=== PATIENT | female | born 1955 | race Caucasian/White ===

== ENCOUNTER 2017-11-03 15:26 | Observation (INO) | payer BC ==
[~2017-11-03] VITALS: Ht 177.8 cm; Wt 81.4 kg
[~2017-11-03 15:26] MED LIST: DDAVP0.1 MG PO; DESMOPRESSIN A0.2 MG; HYDROCORTISONE10 MG PO; LEVOTHYROXINE75 MCG PO; METOPROLOL TART50 MG PO; PANTOPRAZOLE SO40 MG PO; SYNTHROID75 MCG PO
[2017-11-03] MEDS ORDERED: SODIUM CHLORIDE 0.9% 1000ML 1,000 ML IV STA ×2 (15:47)
[2017-11-03] MEDS ORDERED: ONDANSETRON HCL INJ 2 MG/ML VIAL IV PRN ×2 (16:00→18:30)
[2017-11-03] MEDS ORDERED: FAMOTIDINE 20 MG/2 ML VIAL IV ONE (16:00)
[2017-11-03] MEDS ORDERED: PROMETHAZINE 12.5MG/ NACL 0.9% 12.5 MG/50 ML BAG IV PRN (16:00)
[2017-11-03 16:49] LABS: BASOPHILS % 0.2 % (0.0-1.0); HEMATOCRIT 43.5 % (34.2-44.1); HEMOGLOBIN 15.6 g/dL (12.0-16.0); LYMPHOCYTES # (AUTO) 3.9 (1.0-3.2); LYMPHOCYTES % 28.1 % (18.0-39.1); MEAN CORPUSCULAR HEMOGLOBIN 33.7 pg (28-32); MEAN CORPUSCULAR HGB CONC 35.9 g/dL (31-35); MONOCYTES # (AUTO) 0.9 (0.2-0.8); MONOCYTES % 6.4 % (4.4-11.3); NEUTROPHILS # (AUTO) 8.8 (2.1-6.9); NEUTROPHILS % 64.4 % (38.7-80.0); PLATELET COUNT 237 x10e3/uL (140-360); RED BLOOD COUNT 4.63 x10e6/uL (3.6-5.1); RED CELL DISTRIBUTION WIDTH 12.4 % (11.7-14.4)
[2017-11-03 17:04] LABS: ALANINE AMINOTRANSFERASE 23 IU/L (0-55); ALBUMIN/GLOBULIN RATIO 1.3 (0.8-2.0); ALKALINE PHOSPHATASE 75 IU/L (40-150); AMYLASE 34 U/L (25-125); ANION GAP 13.9 mmol/L (8-16); BLOOD UREA NITROGEN 16 mg/dL (7-26); BUN/CREATININE RATIO 20 (6-25); CALCIUM 10.5 mg/dL (8.4-10.2); CARBON DIOXIDE 30 mmol/L (22-29); CHLORIDE 98 mmol/L (98-107); CREATINE KINASE 35 IU/L (29-168); CREATININE, SERUM 0.82 mg/dL (0.57-1.11); EST GLOMERULAR FILTRATION RATE > 60 ML/MIN (60-); GLUCOSE 86 mg/dL (74-118); LIPASE 46 U/L (8-78); MAGNESIUM 1.9 MG/DL (1.3-2.1); POTASSIUM 3.9 mmol/L (3.5-5.1); SODIUM 138 mmol/L (136-145)
[2017-11-03 17:07] LABS: CLARITY,URINE CLEAR (CLEAR); COLOR,URINE YELLOW (YELLOW)
[2017-11-03 17:08] LABS: BILIRUBIN,URINE NEGATIVE (NEGATIVE); KETONES,URINE NEGATIVE (NEGATIVE); LEUKOCYTE ESTERASE ,URINE NEGATIVE (NEGATIVE); NITRITE,URINE NEGATIVE (NEGATIVE); PROTEIN,URINE DIPSTICK TRACE (NEGATIVE); URINE UROBILINOGEN 0.2 mg/dL (0.2 - 1)
[2017-11-03 17:16] LABS: EPITHELIAL CELLS,URINE MANY /LPF
--- NOTE | 2017-11-03 17:17 | Diagnostic Imaging Report ---
EXAMINATION: CHEST SINGLE (PORTABLE) INDICATION: \S\Chest pain, look for CHF, enlarge Mediastinum COMPARISON: Chest x-ray 10/01/2016 FINDINGS: AP view TUBES and LINES: None. LUNGS: Lungs are hyper inflated. Right apical pleural-parenchymal scarring. Lungs are clear. There is no evidence of pneumonia or pulmonary edema. PLEURA: No pleural effusion or pneumothorax. HEART AND MEDIASTINUM: The cardiomediastinal silhouette is unremarkable. BONES AND SOFT TISSUES: No acute osseous lesion. Soft tissues are unremarkable. Surgical clips overlying bilateral breasts. UPPER ABDOMEN: No free air under the diaphragm. IMPRESSION: Emphysema. No acute pulmonary opacities. Normal cardiomediastinal silhouette. Signed by: Dr. Adan Campuzano M.D. on 11/03/2017 5:13 PM
[2017-11-03 17:20] LABS: WBC,URINE (MAN) 0-5 /HPF (0-5)
[2017-11-03 17:23] LABS: BACTERIA,URINE RARE /HPF
[2017-11-03 17:25] LABS: HYALINE CASTS >15 (0-1)
[2017-11-03 17:27] LABS: MUCUS,URINE MODERATE (RARE)
[2017-11-03 17:30] LABS: AMORPHOUS SEDIMENT,URINE FEW (FEW)
[2017-11-03] MEDS: ENALAPRILAT IV INJ 1.25 MG/ML VIAL IV PRN ×2 (18:29→18:53)
[2017-11-03] MEDS ORDERED: ZOLPIDEM TARTRATE 5 MG TAB PO PRN (18:30)
[2017-11-03] MEDS ORDERED: LACTULOSE SYRUP 20 GM/30 ML UDC PO PRN (18:30)
[2017-11-03] MEDS ORDERED: IBUPROFEN 200 MG TAB PO PRN (18:30)
[2017-11-03] MEDS ORDERED: CLONIDINE HCL 0.1 MG TAB PO PRN (18:30)
[2017-11-03] MEDS ORDERED: ACETAMINOPHEN 325 MG TAB PO PRN (18:30)
[2017-11-03] MEDS ORDERED: DIPHENHYDRAMINE HCL 25 MG CAP PO PRN (18:30)
[2017-11-03] MEDS ORDERED: LOSARTAN POTASSIUM 100 MG TAB PO STA (18:32)
[2017-11-03] MEDS ORDERED: IBUPROFEN 400 MG TAB PO PRN (18:45)
[2017-11-03 19:40] VITALS: BP 157/79
[2017-11-03 20:00] VITALS: BP 157/79
[2017-11-03] MEDS: HYDROCORTISONE 10 MG TAB PO SCH (21:00)
[2017-11-04] VITALS (7 sets, daily range): BP systolic 126–167; BP diastolic 60–97
[2017-11-04] MEDS: LEVOTHYROXINE SODIUM 75 MCG TAB PO SCH (06:25)
[2017-11-04] MEDS: HYDROCORTISONE 10 MG TAB PO SCH ×2 (09:00→21:32)
[2017-11-04] MEDS: FAMOTIDINE 20 MG TAB PO SCH ×2 (09:45→17:38)
[2017-11-04] MEDS: DESMOPRESSIN ACETATE 0.2 MG TABLET PO SCH (09:45)
--- NOTE | 2017-11-04 14:44 | Consultation ---
DATE OF CONSULTATION: November 03, 2017 ENDOCRINE CONSULTATION ATTENDING PHYSICIAN: Justin Brower MD Thank you very much for referring this patient. This is a 62-year-old white female who is very well known to me from her previous hospital admissions and followup in my office. Patient has a diagnosis of panhypopituitarism. 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 Patient is on Cortef 20 mg in the morning and 10 mg at night and DDAVP. Patient came to my office initially with some complaining of extreme weakness and muscle pains. She reported to the emergency room last night with history of extreme muscle weakness and difficulty in walking and was admitted to the hospital for further evaluation. Patient is also seeing a neurologist for some neck muscle weakness and has received some Botox shots in the past. She also has history of blood pressure fluctuating and was on lisinopril in the past and also on beta blockers. She is a chronic smoker and has history of COPD. PHYSICAL EXAMINATION GENERAL: Today, the patient is alert, awake, a little bit apprehensive. VITALS: Her heart rate is around 78. Blood pressure is 136/80 mmHg. HEENT: Essentially unremarkable. Thyroid is palpable. Clinically, she is near euthyroid. CHEST: Bilateral vesicular breathing. She has mild bronchospasm. CARDIAC: First and 2nd heart sounds. There is no 3rd or 4th heart sound. Ejection systolic murmur, grade 2/6. CLINICAL IMPRESSION 1. Muscle weakness and difficulty in walking. 2. History of panhypopituitarism and diabetes insipidus. 3. Patient also has mild hypercalcemia. The plan at this time is to continue the Cortef and DDAVP. Will monitor her electrolytes closely, and a neurology evaluation has been already asked. In the meantime, we can start her back on the beta blockers. Thanks again for referring this patient. I will be following this patient with you. Job#: [id number]
[2017-11-04] MEDS: METOPROLOL TARTRATE 25 MG TAB PO SCH (15:00)
[2017-11-04 15:08] LABS: FREE T4 (FREE THYROXINE) 1.03 ng/dL (0.9-1.8); THYROID STIMULATING HORMONE 0.029 uIU/mL (0.350-4.940)
--- NOTE | 2017-11-04 20:34 | Consultation ---
DATE OF CONSULTATION: November 04, 2017 NEUROLOGY CONSULTATION HISTORY OF PRESENT ILLNESS: Ms. Daniel is a 62-year-old, [id number] woman with past medical history significant for panhypopituitarism and focal torticollis treated with Botox injections admitted to [facility] on November 03, 2017, with weakness and hypertension. When asked why she came to the Emergency Center at [facility], the patient replied, "My legs aren't working." Ms. Daniel endorses an unsteady gait and poor balance. She endorses weakness in her legs as well. She has difficulty standing from a seated position and climbing stairs. She has no difficulty going down stairs. Ms. Daniel reports the weakness in her legs has been present for approximately 2 months and has gradually worsened over that time. Approximately 2 weeks ago, the weakness, poor balance, and unsteady gait seemed to significantly worsen. The patient does not endorse a visual field cut or other disturbance, dysarthria, aphasia, facial droop, arm weakness, dizziness, or confusion. Ms. Daniel does endorse numbness and tingling affecting the feet, forelegs, and the hands intermittently. Despite the presence of the above symptoms for approximately 2 months, the patient has not spoken to her neurologist regarding these symptoms. She did not notify her neurologist approximately 2 weeks ago when symptoms seemed to significantly worsen. As stated above, Ms. Daniel has panhypopituitarism, diagnosed approximately 14 months ago. Approximately 1 week ago, her salt operator increased the dose of hydrocortisone from 2 tablets in the morning and 1 tablet at night to 2 tablets in the morning and 2 tablets at night. Ms. Daniel is aware prolonged use of steroids may cause weakness of the muscles of the arms and legs. However, the patient reports "this seemed to happen so fast." REVIEW OF SYSTEMS: Weakness of the legs; numbness and tingling of the feet, forelegs, and hands intermittently; impaired balance and gait. Otherwise, the 12-point review of systems is negative. PAST MEDICAL HISTORY: Hypertension, diabetes insipidus, right breast cancer, panhypopituitarism, focal torticollis, peripheral arterial disease. PAST SURGICAL HISTORY: Double mastectomy with reconstruction, total hysterectomy, tonsillectomy, cholecystectomy, LASIK eye surgery on the right. PAST HOSPITALIZATIONS: Surgeries/procedures as listed, hospitalization at the time panhypopituitarism was diagnosed, breast cancer. FAMILY HISTORY: The patient's paternal and maternal grandparents are . Her paternal grandfather's medical history is unknown. Her paternal grandmother from complications of Alzheimer disease. Both maternal grandparents from coronary artery disease with myocardial infarctions. Ms. Daniel's is father is . He from a stroke. His medical history includes an unknown cancer as well. The patient's mother is from colon cancer with metastatic lesions to the brain. Ms. Daniel has 1 sister who is alive. She resides in an assisted living facility due to a series of traumatic injuries from a fire. Patient has no biological children. SOCIAL HISTORY: The patient is . She graduated high school. 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 Ms. Daniel smokes 1/2 pack of cigarettes per day and has done so for the past 30-plus years. She endorses social alcohol use. Patient does not report current or prior recreational drug use. HOME MEDICATIONS 1. Desmopressin. 2. Hydrocortisone 20 mg by mouth twice daily. 3. Levothyroxine 75 mcg by mouth daily. 4. Metoprolol tartrate 50 mg by mouth daily. 5. Protonix 40 mg by mouth daily. ALLERGIES: SULFA, MORPHINE, AUGMENTIN, BENTYL, HYDROMORPHONE. NO KNOWN FOOD ALLERGIES. NO KNOWN ALLERGIES TO LATEX. NO KNOWN ALLERGIES TO IODINE OR OTHER CONTRAST MATERIALS. PHYSICAL EXAMINATION VITAL SIGNS: Height 70 inches, weight 179 pounds. BMI 25.7 kg per meter squared. Blood pressure 167/92 mmHg. Pulse 74 beats per minute. Respiratory rate 20 breaths per minute. Oxygen saturation 96% on room air. GENERAL: The patient is awake and alert, does not appear distressed. HEENT: Normocephalic, atraumatic. Pupils are equal, round and reactive to light. Moist mucous membranes. NECK: Supple. No appreciable thyromegaly. No appreciable carotid bruits. CARDIOVASCULAR: S1 and S2, regular rate and rhythm. No murmurs, rubs, or gallops. RESPIRATORY: Mild inspiratory wheezing throughout all lung reed. EXTREMITIES: The skin is warm and dry. No clubbing, cyanosis, or edema. The posterior tibial and dorsalis pedis pulses are 1+ and symmetric. SKIN: No rashes or lesions. NEUROLOGIC EXAMINATION MEMORY/ATTENTION: The patient is awake and alert, oriented to person, place, time and situation. CRANIAL NERVES: Cranial nerve I: Not tested. Cranial nerves II, III, IV, and : Pupils are equal and round, react briskly to light (from 4 mm to 2 mm). Extraocular movements intact. No nystagmus. Cranial nerve V: Sensation to light touch and pinprick is intact in the bilateral V1 through V3 distributions. Strength of the temporalis and masseter muscles is within normal limits. Cranial nerve VIII: Hearing is intact to finger rub bilaterally. Cranial nerves IX and X: The soft palate elevates equally and symmetrically. Cranial nerve XI: Normal strength of the bilateral sternocleidomastoid and trapezius muscles. Neck extensors 5/5. Neck flexors 4/5. Cranial nerve XII: Tongue protrudes midline and moves symmetrically from side to side. STRENGTH: Bulk is normal. Strength is 4/5 in the bilateral deltoids, 5/5 in the bilateral biceps, 5/5 in the bilateral triceps, 5/5 in the bilateral wrist flexors, 5/5 in the bilateral wrist extensors, 5/5 in the bilateral finger flexors, 5/5 in the bilateral finger extensors, 5/5 in the intrinsic hand muscles, 4-/5 in the bilateral hip flexors, 4+/5 in the bilateral knee flexors, 5/5 in the bilateral knee extensors, 4+/5 with bilateral ankle dorsiflexion, 5/5 bilateral plantar flexion, and 4+/5 in the intrinsic foot muscles. Tone is normal. DTRs: Deep tendon reflexes are 1+ and symmetric at the triceps, biceps, and brachioradialis. Deep tendon reflexes are absent and symmetric at patellas and Achilles. Plantar responses are flexor bilaterally. SENSATION: Sensation is intact to light touch and pinprick in both arms and both legs. There is absent vibratory sensation at the toes and ankles, diminished vibratory sensation at the knees, intact vibratory sensation at the fingers. CEREBELLAR: Ircbbx-wzpg-faynor and heel-powell movements are intact without dysmetria or other impairment. Rapid alternating movements are intact. GAIT: Deferred. SPEECH: Spontaneous speech is normal without appreciable dysarthria or aphasia. Repetition is intact. INVOLUNTARY MOVEMENTS: None. PRONATOR DRIFT: None. LABORATORY DATA: Sodium 138, potassium 3.9, chloride 98, carbon dioxide 30, anion gap 13.9. BUN 16, creatinine 0.82, estimated GFR greater than 60. XZX-pi-cbyjarecfr ratio 20. Glucose 86, calcium 10.5, magnesium 1.9, total bilirubin 0.6. AST 23, ALT 23, alkaline phosphatase 75. Total protein 7.0, albumin 4.0, globulin 3.0, iexecsn-fu-stzywoah ratio 1.3. Creatinine kinase 35 and CK-MB 0.50. Troponin I 0.003. B-natriuretic peptide 92.5. Amylase 34, lipase 46, TSH 0.029. Free T4 is 1.07, 1.03. CBC with differential and platelets reveals a white blood cell count of 13.72 with 64.4% neutrophils, 28.1% lymphocytes, 6.4% monocytes, 0.0% eosinophils, and 0.2% basophils. The hemoglobin and hematocrit are 15.6 and 43.5, respectively. Platelet count is 237. A urinalysis reveals trace protein, trace blood, 6 to 10 red blood cells, greater than 15 hyaline casts, and moderate urine mucus. DIAGNOSTIC STUDIES 1. EKG, 11/03/2017: Normal sinus rhythm at 85 beats per minute. 2. Chest x-ray of 11/03/2017: Emphysema. No acute pulmonary opacities. Normal cardiomediastinal silhouette. 3. Bilateral lower extremity ultrasound with Doppler, 11/04/2017: There is atherosclerotic disease without significant stenosis at the right MOTION AND TIME STUDY TEACHER, PAINT SPRAY INSPECTOR, and GERALDINE as well as at the left MOTION AND TIME STUDY TEACHER, SFA, PAINT SPRAY INSPECTOR, GERALDINE. There is atherosclerotic disease with possibly significant stenosis at the right SFA. ASSESSMENT AND PLAN: Ms. Daniel is a 62-year-old, [id number] woman with past medical history significant for panhypopituitarism necessitating treatment with oral glucocorticoids for the past 14 months, admitted to [facility] on November 03, 2017, with worsening weakness in the legs, proximal more so than distal, and poor balance/unsteady gait. Ms. Daniel's neurological examination is significant for weakness of the neck flexors and proximal more so than distal muscles of the arms and legs, absent/diminished sensation to vibration over the feet and forelegs. The patient's laboratory data and other diagnostic studies have been reviewed and are documented above. Ms. Daniel's reported poor balance and unsteady gait are probably the result of peripheral neuropathy. Patient did receive chemotherapy as part of her treatment regimen for breast cancer. This is the probable cause of her peripheral neuropathy. In regards to weakness, Ms. Daniel not only has weakness in the muscles of the legs, but the neck flexors and proximal muscles of the arms as well. 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 Given the patient's prolonged use of hydrocortisone for treatment of panhypopituitarism, this is the most likely cause of her proximal muscle weakness. RECOMMENDATIONS 1. Muscle enzymes will be drawn in an effort to include/exclude various diagnoses known to cause muscle weakness. 2. Ms. Daniel requires an NCV/EMG as an outpatient for further evaluation of her symptoms. 3. If the patient is found to have a steroid-induced myopathy, she would benefit from limiting treatment with steroids as much as possible as well as physical therapy. 4. Defer treatment of the remaining medical comorbidities to the primary and other services following the patient. Thank you for this consultation. I will continue to follow this patient while she remains in the hospital. Time spent: 70 minutes. Job#: [id number] SONIDO MELARA
[2017-11-05] VITALS: BP 151/80
[2017-11-05 04:00] VITALS: BP 162/79
[2017-11-05] MEDS: LEVOTHYROXINE SODIUM 75 MCG TAB PO SCH (05:25)
[2017-11-05 08:00] VITALS: BP 127/63
[2017-11-05] MEDS: DESMOPRESSIN ACETATE 0.2 MG TABLET PO SCH (08:50)
[2017-11-05] MEDS: FAMOTIDINE 20 MG TAB PO SCH ×2 (08:50→16:56)
[2017-11-05] MEDS: METOPROLOL TARTRATE 25 MG TAB PO SCH (08:50)
[2017-11-05] MEDS: HYDROCORTISONE 10 MG TAB PO SCH (08:50)
[2017-11-05] MEDS ORDERED: SODIUM CHLORIDE 0.9% 100 ML 100 ML ONE (10:28)
[2017-11-05] MEDS ORDERED: IOPAMIDOL 370 MG/ML 200 ML INFUS..BTL INJ ONE (10:29)
[2017-11-05 12:00] VITALS: BP 127/63
--- NOTE | 2017-11-05 14:53 | Diagnostic Imaging Report ---
PROCEDURE:CTA LOWER EXTREMITIES BILAT COMPARISON:None. INDICATIONS:PERIPHERAL ARTERY DISEASE FINDINGS: Pelvis: The distal aorta, bilateral common iliac, external iliac and internal iliac arteries demonstrate moderate calcified and noncalcified atherosclerotic changes without evidence of stenosis or aneurysm. Partially visualized small and large bowel loops appear unremarkable. The bladder appears unremarkable. No lymphadenopathy. Visualized bony structures are unremarkable. Post surgical changes are present in bilateral inguinal regions. Lower extremities: Moderate atherosclerotic changes are present within the bilateral common femoral, superficial femoral, and popliteal arteries which are patent without significant stenosis. The bilateral deep femoral arteries are patent. The bilateral anterior and posterior tibial arteries are patent throughout their course without significant stenosis or atherosclerotic changes. The bilateral peroneal arteries are patent in the proximal and mid portions but are not well opacified distally. CONCLUSION: Atherosclerotic changes with patent iliac, femoral, and popliteal arteries bilaterally without evidence of aneurysm or stenosis. Patent bilateral anterior and posterior tibial arteries without stenoses. Patent proximal and mid bilateral peroneal arteries, however with non-opacification in the distal portions which is felt to more likely reflect slow flow. However in the absence of delayed images, cannot differentiate slow flow from occlusion. Dictated by: OLMAN LARA M.D. on 11/05/2017 at 13:18 Electronically approved by: OLMAN LARA M.D. on 11/05/2017 at 13:18
[2017-11-05 16:00] VITALS: BP 121/71
[2017-11-05 18:30] VITALS: BP 121/71
== END 2017-11-05 19:57 | disposition home or self-care (01) ==
LOC: ER 15:26 → ERHOLD 18:47 → MED/SURG2 20:00
PROVIDERS: ADMIT Internal Medicine; ATTEND Internal Medicine
DX: G72.0 Drug-induced myopathy (principal); T38.0X5A Adverse effect of glucocorticoids and synthetic analogues, initial encounter; R53.1 Weakness; E83.52 Hypercalcemia; E23.0 Hypopituitarism; I10 Essential (primary) hypertension; J44.9 Chronic obstructive pulmonary disease, unspecified; F17.210 Nicotine dependence, cigarettes, uncomplicated; E23.2 Diabetes insipidus; Z85.3 Personal history of malignant neoplasm of breast; I73.9 Peripheral vascular disease, unspecified; M43.6 Torticollis; Z88.5 Allergy status to narcotic agent; Z88.2 Allergy status to sulfonamides; Z88.8 Allergy status to other drugs, medicaments and biological substances
CPT/HCPCS: 36415 ×2; 71045; 73706; 80053; 81001; 82024; 82085; 82150; 82550 ×2; 82553; 83690; 83735; 83874; 83880; 84439 ×2; 84443; 84484; 85025; 87086; 93005; 93925; 97116 ×2; 97139; 97161; 97530; 99284; G0378 ×3; G8978; G8979; J7030; Q9967

== ENCOUNTER 2017-11-26 12:13 | Observation (INO) | payer BC ==
[~2017-11-26] VITALS: Ht 177.8 cm; Wt 84.4 kg
[2017-11-26] MEDS ORDERED: SODIUM CHLORIDE 0.9% 1000ML 1,000 ML IV STA (12:44)
[2017-11-26] MEDS ORDERED: ASPIRIN 81 MG CHEW TAB PO ONE (12:45)
[2017-11-26] MEDS ORDERED: ONDANSETRON HCL 4 MG ORAL DISINTEGRATING TAB PO ONE (12:45)
[2017-11-26 12:56] LABS: BASOPHILS % 0.4 % (0.0-1.0); HEMATOCRIT 41.2 % (34.2-44.1); HEMOGLOBIN 14.4 g/dL (12.0-16.0); LYMPHOCYTES # (AUTO) 2.4 (1.0-3.2); LYMPHOCYTES % 21.2 % (18.0-39.1); MEAN CORPUSCULAR HEMOGLOBIN 33.3 pg (28-32); MEAN CORPUSCULAR VOLUME 95.2 fL (81-99); MONOCYTES # (AUTO) 0.7 (0.2-0.8); MONOCYTES % 5.8 % (4.4-11.3); NEUTROPHILS % 71.7 % (38.7-80.0); PLATELET COUNT 222 x10e3/uL (140-360); RED BLOOD COUNT 4.33 x10e6/uL (3.6-5.1); RED CELL DISTRIBUTION WIDTH 12.1 % (11.7-14.4)
[2017-11-26 13:06] LABS: INR 1.06; PARTIAL THROMBOPLASTIN TIME 31.9 seconds (23.8-35.5)
[2017-11-26 13:16] LABS: ALANINE AMINOTRANSFERASE 15 IU/L (0-55); ALBUMIN 3.5 g/dL (3.5-5.0); ALKALINE PHOSPHATASE 68 IU/L (40-150); AMYLASE 22 U/L (25-125); ANION GAP 13.4 mmol/L (8-16); BLOOD UREA NITROGEN 9 mg/dL (7-26); BUN/CREATININE RATIO 11 (6-25); CARBON DIOXIDE 28 mmol/L (22-29); CHLORIDE 105 mmol/L (98-107); CREATINE KINASE 48 IU/L (29-168); CREATININE, SERUM 0.81 mg/dL (0.57-1.11); EST GLOMERULAR FILTRATION RATE > 60 ML/MIN (60-); GLUCOSE 111 mg/dL (74-118); LIPASE 21 U/L (8-78); POTASSIUM 3.4 mmol/L (3.5-5.1); SODIUM 143 mmol/L (136-145)
[2017-11-26 13:19] LABS: BILIRUBIN,URINE NEGATIVE (NEGATIVE); COLOR,URINE YELLOW (YELLOW); KETONES,URINE NEGATIVE (NEGATIVE); LEUKOCYTE ESTERASE ,URINE TRACE (NEGATIVE); NITRITE,URINE NEGATIVE (NEGATIVE); PROTEIN,URINE DIPSTICK NEGATIVE (NEGATIVE); URINE UROBILINOGEN 0.2 mg/dL (0.2 - 1)
[2017-11-26 13:27] LABS: BACTERIA,URINE FEW /HPF; CLARITY,URINE SL CLOUDY (CLEAR); EPITHELIAL CELLS,URINE MODERATE /LPF
[2017-11-26 13:35] LABS: THYROID STIMULATING HORMONE 0.011 uIU/mL (0.350-4.940)
[2017-11-26] MEDS ORDERED: SODIUM CHLORIDE 0.9% 1000ML 1,000 ML IV SCH (14:47)
[2017-11-26] MEDS ORDERED: DEXTROSE 50% SYRINGE 50 ML IV PRN (15:00)
[2017-11-26] MEDS ORDERED: INSULIN REGULAR, HUMAN 100 UNIT/1 ML 3ML VIAL SQ SCH (16:30)
[2017-11-26] MEDS ORDERED: NEXIUM10 MG PO (17:44)
[2017-11-26 18:40] VITALS: BP 142/88
[2017-11-26 20:09] VITALS: BP 142/88
[2017-11-26 20:24] VITALS: BP 174/84
[2017-11-27] VITALS (9 sets, daily range): BP systolic 112–178; BP diastolic 66–89
[2017-11-27] MEDS: ONDANSETRON HCL 4 MG ORAL DISINTEGRATING TAB PO PRN ×2 (00:39→17:37)
[2017-11-27] MEDS ORDERED: ACETAMINOPHEN 325 MG TAB PO PRN (05:15)
[2017-11-27] MEDS ORDERED: LEVOFLOXACIN 500MG/D5W 100ML 100 ML IV SCH (05:15)
[2017-11-27] MEDS: SODIUM CHLORIDE 0.9% 1000ML 1,000 ML IV SCH ×2 (05:55→16:02)
[2017-11-27] MEDS: METOPROLOL TARTRATE 50 MG TAB PO SCH (09:38)
[2017-11-27] MEDS: PANTOPRAZOLE 40 MG 10ML VIAL IV SCH (09:38)
[2017-11-27] MEDS: LEVOTHYROXINE SODIUM 75 MCG TAB PO SCH (09:38)
[2017-11-27] MEDS: HYDROCORTISONE 10 MG TAB PO SCH (09:38)
[2017-11-27 15:23] LABS: FREE T4 (FREE THYROXINE) 1.14 ng/dL (0.9-1.8); THYROID STIMULATING HORMONE 0.01 uIU/mL (0.350-4.940)
--- NOTE | 2017-11-27 15:45 | Consultation ---
DATE OF CONSULTATION: November 27, 2017 ENDOCRINE CONSULTATION Thank you very much for referring this patient. This is a 62-year-old white female who is known to me from her previous hospital admissions. Patient has a known case of panhypopituitarism and she is on steroids, Cortef 10 mg in the morning and 20 mg in the afternoon and Synthroid 0.075 mg once daily. She also has diabetes insipidus for which she is on DDAVP 0.1 mg half a tablet twice daily. Patient came to the hospital with history of nausea, vomiting and muscle weakness. Patient had extensive workup done for muscle weakness and difficulty walking in the last hospital admission and was also seen by the neurologist. There is a provisional diagnosis of steroid myopathy as far as the muscle weakness is concerned. Patient also is a chronic smoker. She is on several other medications at home including thyroid medicine and Prilosec. PHYSICAL EXAMINATION GENERAL: The patient is alert, awake, a little bit apprehensive. VITAL SIGNS: Her heart rate is around 70. Blood pressure is 124/70 mmHg. HEENT: Essentially unremarkable. Thyroid is palpable. Clinically she is near euthyroid. CHEST: Bilateral vesicular breathing. She has mild bronchospasm. CARDIAC: First and 2nd sounds. There is no 3rd or 4th heart sound. Ejection systolic murmur grade 2/6. NEUROLOGIC: Patient has difficulty walking and some muscle weakness. There is no localizing neurological signs. The lab evaluation so far has revealed her sodium is around 143, potassium is 3.4, BUN and creatinine is normal. Blood sugar is 111. Hemoglobin is 14.4 with hematocrit of 41.2. CLINICAL IMPRESSION 1. Panhypopituitarism. 2. Diabetes insipidus. 3. Chronic smoker. 4. Rule out steroid myopathy. The plan at this time is in view of the fact that she has panhypopituitarism, continue small dose of steroids, monitor her levels closely and do a serum ACTH level and a thyroid profile also. Thanks for referring this patient. I will be following this patient with you. Job#: [id number] ROSIE MELARA
[2017-11-27] MEDS: DESMOPRESSIN ACETATE 0.2 MG TABLET PO SCH (17:56)
[2017-11-27] MEDS ORDERED: HYDROCORTISONE 10 MG TAB PO SCH (21:00)
[2017-11-28] VITALS (8 sets, daily range): BP systolic 80–152; BP diastolic 55–87
[2017-11-28] MEDS ORDERED: LEVOFLOXACIN 500 MG TAB PO SCH (05:15)
[2017-11-28] MEDS ORDERED: PANTOPRAZOLE SOD 40 MG TABEC PO SCH (07:30)
[2017-11-28] MEDS: PANTOPRAZOLE 40 MG 10ML VIAL IV SCH (08:51)
[2017-11-28] MEDS: LEVOTHYROXINE SODIUM 75 MCG TAB PO SCH (08:51)
[2017-11-28] MEDS: METOPROLOL TARTRATE 50 MG TAB PO SCH (08:52)
[2017-11-28] MEDS: HYDROCORTISONE 10 MG TAB PO SCH (08:52)
[2017-11-28] MEDS: DESMOPRESSIN ACETATE 0.2 MG TABLET PO SCH (08:52)
== END 2017-11-28 16:39 | disposition home or self-care (01) ==
LOC: ER 12:13 → INTOOBSV 14:53 → ERHOLD 14:53 → IMCU 18:50 → OBSVTOIN 11-28 15:09 → INTOOBSV 11-28 15:09
PROVIDERS: ADMIT Internal Medicine; ATTEND Internal Medicine
DX: K52.9 Noninfective gastroenteritis and colitis, unspecified (principal); I95.1 Orthostatic hypotension; R10.13 Epigastric pain; R11.2 Nausea with vomiting, unspecified; E86.0 Dehydration; E03.9 Hypothyroidism, unspecified; I10 Essential (primary) hypertension; E23.0 Hypopituitarism; F17.210 Nicotine dependence, cigarettes, uncomplicated; E23.2 Diabetes insipidus; Z88.1 Allergy status to other antibiotic agents; Z88.5 Allergy status to narcotic agent; Z88.2 Allergy status to sulfonamides; Z88.8 Allergy status to other drugs, medicaments and biological substances; K21.9 Gastro-esophageal reflux disease without esophagitis; J44.9 Chronic obstructive pulmonary disease, unspecified
CPT/HCPCS: 36415 ×3; 80053; 81001; 82024; 82150; 82550; 82553; 82948 ×3; 83001; 83615; 83690; 84439; 84443 ×2; 84484; 85025; 85610; 85730; 87086; 93005; 97116 ×2; 97161; 97530; 99284; G0378 ×3; G8978; G8979; J1956; J7030 ×2; S0164